=== PATIENT | male | born 1980 | race Caucasian/White ===

== ENCOUNTER 2017-02-16 14:33 | Emergency (ER) | payer SELFPAY ==
[~2017-02-16] VITALS: Ht 170.2 cm; Wt 81.0 kg
[2017-02-16 14:35] VITALS: Ht 170.2 cm; Wt 81.0 kg
--- NOTE | 2017-02-16 14:39 | ERD ---
ER Documentation Chief Complaint Chief Complaint drunk and sad about the holidays, no intent to harm self HPI The patient is a 36-year-old male, presenting to the ER because he has been drinking, feeling sad because of the holiday. He denies auditory/visual hallucination, suicidal/homicidal ideation. He denies headache, syncope, near syncope, neck pain, chest pain, abdominal pain, vomiting, dysuria, diarrhea, constipation. He has been drinking, does not want to answer whether he has been doing drug or smoking. Next Past medical/surgical history: None ROS All systems reviewed and are negative except as per history of present illness. Medications Home Meds Unable to Obtain Active Prescriptions or Reported Meds Allergies Allergies: Coded Allergies: Unknown: Unable to obtain (Unverified , 02/16/17) Physical Exam Vitals Vital Signs Date Time Temp Pulse Resp B/P Pulse Ox O2 Delivery O2 Flow Rate FiO2 02/16/17 14:57 98.0 88 18 129/68 99 Room Air 02/16/17 14:35 98.2 100 20 122/96 100 Physical Exam Const: No acute distress. Head: Atraumatic. Eyes: Normal Conjunctiva. ENT: Normal External Ears, Nose and Mouth. Neck: Full range of motion. No meningismus. Resp: Clear to auscultation bilaterally. Cardio: Regular rate and rhythm. Abd: Soft, non distended, normal bowel sounds, non tender. Skin: No petechiae or rashes. Back: No midline or flank tenderness. Ext: No cyanosis, or edema. Neur: Awake and alert. No focal deficit Psych: Depressed Procedures/MDM MEDICAL MAKING DECISION: The patient is a 36-year-old male, presenting with acute ankle abuse, depression He was able to tolerate meal well in the ER. He is stable for medicine follow-up The differential diagnoses considered include but are not limited to depression , anxiety, substance abuse, psychiatric illness Departure Diagnosis: Primary Impression: Alcohol abuse Condition: Good Comments The patient's blood pressure was elevated (>120/80) but appears stable without evidence of hypertension emergency or urgency. The patient was counseled about the risks of hypertension and urged to pursue outpatient monitoring and therapy within a week with their primary care physician. I discussed the findings with the patient. I advised the patient to follow-up with the primary physician in about 1-2 days, sooner if needed and return if any concern. Disclaimer: Inadvertent spelling and grammatical errors are likely due to EHR/ dictation software use and do not reflect on the overall quality of patient care. Also, please note that the electronic time recorded on this note does not necessarily reflect the actual time of the patient encounter. SHEILA LEAL MD Feb 16, 2017 14:39
[2017-02-16 14:57] VITALS: BP 129/68; PULSE 88; RESP 18; TEMP 98
== END 2017-02-16 15:00 | disposition home or self-care (01) ==
LOC: E/R 14:33
DX: F10.10 Alcohol abuse, uncomplicated (principal); R40.2252 Coma scale, best verbal response, oriented, at arrival to emergency department
CPT/HCPCS: 99282